=== PATIENT | male | born 1995 | race Caucasian/White ===

== ENCOUNTER 2022-12-22 13:47 | Observation (INO) | payer OTHER, SELFPAY ==
--- NOTE | ~2022-12-22 | CT_ITS ---
EXAMINATION: CT abdomen pelvis w con DATE: 12/22/2022 15:20 INDICATION: Abdominal pain TECHNIQUE: Computed tomography (CT) of the abdomen and pelvis was performed with 100 mL Omnipaque-350 intravenous contrast. Automated exposure control and iterative reconstruction technique were employe d. The dose-length product was 976.35 mGy-cm. COMPARISON: None FINDINGS: Lung bases are clear. Heart size is normal. No pericardial or pleural effusion. Liver, gallbladder, s pleen, pancreas, bilateral adrenal glands and kidneys are normal. The appendix is dilated to 1.6 cm w ith prominent surrounding inflammatory stranding consistent with acute appendicitis. Remainder of the bowels are unremarkable with no obstruction. Bladder is normal. Moderate-sized fat-containing left i nguinal hernia and tiny fat-containing umbilical hernia. Small amount of likely reactive free fluid i n the cul-de-sac. No abscess or free intraperitoneal gas. There are several mildly prominent but stil l normal-sized likely reactive lymph nodes along the ileocolic chain. No pathologically enlarged abdo marleni or pelvic lymphadenopathy. Schmorl's nodes along the superior endplates of T11 and T12. IMPRESSION: 1. Acute appendicitis. Dr. Melgar discussed these findings with Dr. Kulkarni at 3:32 PM. Reviewed, dictated and finalized at location A.
[2022-12-22 13:52] VITALS: BP 152/81; PULSE 66; RESP 16; TEMP 36.4; O2SAT 100
[2022-12-22 14:19] LABS: Basophils Percent Auto 0.6 % (0.2-1.2); Eosinophils Absolute Auto 0.2 K/mm3 (0-0.3); Eosinophils Percent Auto 2.6 % (0-4.4); Hemoglobin 14.9 g/dL (14.0-18.0); Immature Granulocyte Absolute 0.01 K/mm3 (0.00-0.031); Immature Granulocyte Percent A 0.1 % (0-0.5); Lymphocytes Absolute Auto 2.03 K/mm3 (0.9-3.2); Lymphocytes Percent Auto 29.1 % (18.3-44.2); Mean Corpuscular HGB Conc 32.4 g/dl (32-36); Mean Corpuscular Hemoglobin 29.6 pg (26-34); Mean Corpuscular Volume 91.5 fl (80-100); Mean Platelet Volume 9.3 fl (7.4-10.4); Monocytes Absolute Auto 0.6 K/mm3 (0.1-0.6); Monocytes Percent Auto 8.3 % (2.6-8.5); Neutrophils Absolute Auto 4.1 K/mm3 (1.3-6.7); Neutrophils Percent Auto 59.3 % (45.5-73.1); Platelet Count Result 233 k/mm3 (150-375); Red Blood Count 5.03 M/mm3 (4.6-6.20); Red Cell Distribution Width 12.9 % (11.5-14.5)
[2022-12-22 14:21] LABS: Appearance Urine Clear (Clear); Bilirubin Urine Negative (Negative); Blood Urine Negative (Negative); Color Urine Yellow (Yellow); Glucose Urine UA Negative (Negative); Ketones Urine Negative (Negative); Leukocyte Esterase Ur Negative LEU/UL (Negative); Nitrate Urine Negative (Negative); Protein Urine Negative (Negative); Specific Grav Ur 1.023 (1.001-1.035); Urobilinogen Urine 0.2 mg/dL (<2.0); pH Urine 6.5 (5.0-9.0)
[2022-12-22 14:22] LABS: Add Urine Microscopic? NO
[2022-12-22 14:30] LABS: Alanine Aminotransferase 19 U/L (6-50); Albumin Level 4.6 g/dL (3.5-5.1); Alkaline Phosphatase 61 U/L (38-126); Anion Gap 5 mmol/L (8-16); Aspartate Amino Transferase 25 U/L (17-59); Bilirubin,Total 0.7 mg/dL (0.2-1.3); Blood Urea Nitrogen 19 mg/dL (9-20); Calcium 8.8 mg/dL (8.4-10.2); Carbon Dioxide 31 mmol/L (22-30); Chloride 102 mmol/L (98-107); Estimated CRCL calculation 125 ml/min; Estimated Glomerular Filt Rate > 60; Glucose 95 mg/dL (65-110); Lipase 45 U/L (23-300); Potassium 4.1 mmol/L (3.4-5.0); Sodium 138 mmol/L (137-145)
--- NOTE | 2022-12-22 14:53 | ED.ABDPAIN ---
HPI - Abdominal Pain General Chief Complaint: Abdominal Pain Stated Complaint: RLQ pain Time Seen by Provider: 12/22/22 14:30 History of Present Illness HPI narrative: Patient is a 27-year-old male who presents to the emergency department this afternoon complaining of right lower quadrant abdominal pain that started on . Patient states that the pain has been persistent since then, has not increased or decreased in intensity, just persisted. He denies any radiation of the pain. Patient denies any additional symptoms including chest pain, shortness of breath, nausea, vomiting, dysuria, hematuria, constipation, diarrhea, melena, hematochezia, fevers or chills. He also denies any headaches, dizziness, lightheadedness, blurry visions, dizziness, focal weakness, numbness and or tingling. There are no other modifying, alleviating, or precipitating factors at this time. Related Data Allergies Allergy/AdvReac Type Severity Reaction Status Date / Time No Known Allergies Allergy Verified 12/22/22 15:04 Review of Systems Review of Systems: All systems are reviewed and are negative unless stated otherwise in the HPI. Exam Narrative: General: Alert, awake, afebrile, in no acute distress. HEENT: PERRL, no rhinorrhea, no post nasal drip, oropharynx clear. Neck: Trachea midline, no JVD, no lymphadenopathy. Cardiovascular: Regular rate and rhythm, no murmurs, rubs or gallops, no peripheral edema. Respiratory: Clear to auscultation bilaterally, no tachypnea, no wheezing, no rhonchi, no rubs, no respiratory distress. Abdomen: Soft, tenderness to palpation over the RLQ, nondistended, no rebound, no guarding, no peritoneal signs. Musculoskeletal: No joint swelling or deformity, normal muscle tone. Skin: No rashes or petechia, no signs of infection. Psychiatric: Alert and oriented, normal behavior and judgment for situation. Neurological: Alert and oriented to person, place, and time. Follows all commands. No focal deficits, speech is clear and fluent. Course Vital Signs Vital signs: Vital Signs Temperature 97.6 F 12/22/22 13:52 Pulse Rate 66 12/22/22 13:52 Respiratory Rate 16 12/22/22 13:52 Blood Pressure 152/81 H 12/22/22 13:52 Pulse Oximetry 100 12/22/22 13:52 Oxygen Delivery Room Air 12/22/22 13:52 Temperature 97.6 F 12/22/22 13:52 Pulse Rate 66 12/22/22 13:52 Respiratory Rate 16 12/22/22 13:52 Blood Pressure 152/81 H 12/22/22 13:52 Pulse Oximetry 100 12/22/22 13:52 Oxygen Delivery Room Air 12/22/22 13:52 MDM - Abdominal Pain MDM Narrative Medical decision making narrative: The patient was evaluated by myself in the emergency department. History is obtained from patient who is an independent historian and physical exam was performed. External medical records were reviewed at this time. IV was established and pertinent tests were ordered. Laboratory results obtained revealing no acute process. Imaging studies obtained included CT abdomen pelvis with contrast which was independently interpreted by me revealing an acute appendicitis. At this time, the stonemason general surgeon, Dr. Rodriguez was paged at [phone] and case was discussed with him over the phone at [phone]. Differential diagnosis considerations include acute appendicitis, diverticulitis, and constipation. I have evaluated and discussed social determinants of health with the patient that could potentially impact subsequent diagnosis and treatment plans. On repeat assessment of the patient, reevaluation revealed that the patient is doing well and is in no acute distress. Patient symptoms have remained stable since he arrived to our emergency department. Repeat vital signs were all reviewed and noted to be stable. Differential diagnosis and treatment plan were discussed with the patient at bedside. Patient agrees with discussion and after shared medical decision making agrees with admission. All questions were answered to the
[2022-12-22] MEDS: PIPERACILLIN/TAZ 4.5G/NS 100ML 4.5 GM/100 ML BAG IVPB (16:10)
[2022-12-22 16:41] VITALS: BP 126/75; PULSE 64; RESP 18; O2SAT 100
[2022-12-22 17:58] VITALS: BMI 30.5
--- NOTE | 2022-12-22 18:00 | ADMGEN ---
This patient, Dave Barboza, was admitted to 3 [facility] Surg Room 301-01. Patient/family oriented to hospital policies and general routines including ID bracelet, bed and alarms, visiting hours, pain management, procedures, bathroom and other care routines, personal items, smoking policy, room service/diet, and visiting hours. Information on how to activate the Rapid Response Team has been discussed. Patient/Family are encouraged to report perceived risks to care and to ask questions if they do not understand what they are told or what they should do.
[2022-12-22 22:00] VITALS: BP 144/78; PULSE 54; RESP 12; TEMP 35.7; O2SAT 98
[2022-12-23] VITALS (13 sets, daily range): BP systolic 116–153; BP diastolic 70–84; PULSE 51–91; RESP 12–16; TEMP 35.9–37.2; O2SAT 95–100
--- NOTE | 2022-12-23 01:08 | PC.NURSE ---
Daylight Savings Time For Daylight Savings Time Ending in the Fall - Clocks are moved back. For Daylight Savings Time Beginning in the Spring - Clocks are moved ahead. For [facility], the time of change occurs at 0200 hrs. Time is taken from the sports book server. This entry on the patient's chart recognizes the change in time reflected during documentation. Example: 2 entries for vital signs may be charted for 0200 hrs.
--- NOTE | 2022-12-23 07:21 | PM.IMHP ---
H&P: HPI History of Present Illness Date/Time: 12/23/22 07:21 Chief Complaint: acute appendicitis Narrative: Pt is a 27 y/o M presenting to ED c/o RLQ abd pain over last few days. Pt reports pain is localized to RLQ and is constant, sharp. Pt reports pain is worse c movt. Pt reports decreased appetite although no f/c, N/V. Pt denies previous episodes. Review of Systems Review of Systems: All systems reviewed & are unremarkable except as noted in HPI and below PMFSH Social History Social History Smoking status: Current some day smoker Alcohol intake: current Substance use: never Lack of Transportation: No Lack of Food: Never True Current Housing: I Have Housing Concerned About Future Housing: No Difficulty Paying Gas/Electric Bills: No Difficulty Paying for Meds: No Currently Unemployed: No Education: Decline to Answer Difficulty w/ Childcare or Family Care: No Spiritual care concerns: No Comments PMH - none SH - none FH - no CRC, IBD Meds Home Medications and Allergies Home Medications Medication Instructions Recorded Confirmed Type dextroamphetamine-amphetamine ER 25 mg PO DAILY 12/22/22 12/22/22 History 25 mg 24hr capsule,extend release Allergies Allergy/AdvReac Type Severity Reaction Status Date / Time No Known Allergies Allergy Verified 12/22/22 15:04 Vital Signs Vital Signs - 24 hr 12/22/22 13:52 12/22/22 16:41 12/22/22 18:20 Temperature 36.4 C Pulse Rate 66 64 Respiratory Rate 16 18 Blood Pressure 152/81 H 126/75 Pulse Oximetry 100 100 Oxygen Delivery Room Air Room Air 12/22/22 22:00 12/22/22 20:00 12/23/22 06:00 Temperature 35.7 C L 35.9 C L Pulse Rate 54 L 59 L Respiratory Rate 12 14 Blood Pressure 144/78 H 124/79 Pulse Oximetry 98 100 Oxygen Delivery Room Air Exam Const: General: cooperative, comfortable, no acute distress and obese HENMT: Head: normal to inspection, normocephalic and atraumatic Eyes: General: appearance normal, both eyes and all related structures Neck: Neck: normal visual inspection, full ROM and no lymphadenopathy Resp: Auscultation: clear to auscultation bilaterally Cardio: Rate: regular rate Rhythm: regular rhythm GI: Inspection: normal to inspection GI Palp: Yes abdominal tenderness, Yes Soft to palpation, Yes Tenderness to palpation present (GI), No Guarding due to palpation present (GI) and No Rigid due to palpation Skin: General skin exam: normal color and no rashes or lesions noted Neuro: General: patient oriented x3 and CN's II-XI intact bilaterally Extrem: General: normal to inspection and full ROM H&P: Results Labs Labs: Short CBC 12/22/22 Range/Units 14:12 WBC 7.0 (4.5-10.0) K/mm3 Hgb 14.9 (14.0-18.0) g/dL Hct 46.0 (42.0-52.0) % Plt Count 233 (150-375) k/mm3 BMP 12/22/22 14:12 Sodium 138 Potassium 4.1 Chloride 102 Carbon Dioxide 31 H BUN 19 Creatinine 1.10 Glucose 95 Calcium 8.8 Liver Function 12/22/22 Range/Units 14:12 Total Bilirubin 0.7 (0.2-1.3) mg/dL AST 25 (17-59) U/L ALT 19 (6-50) U/L Alkaline Phosphatase 61 (38-126) U/L Albumin 4.6 (3.5-5.1) g/dL Urine 12/22/22 Range/Units 14:12 Urine Color Yellow (Yellow) Urine Appearance Clear (Clear) Urine pH 6.5 (5.0-9.0) Ur Specific [place] 1.023 (1.001-1.035) Urine Protein Negative (Negative) mg/dL Urine Glucose (UA) Negative (Negative) mg/dL Imaging CT scan - abdomen: My impression: acute uncomplicated appendicitis Assessment and Plan Assessment and plan (1) Acute appendicitis: Code(s): K35.80 - Unspecified acute appendicitis Status: Acute Assessment and Plan: IV abx, NPO, OR for urgent appendectomy
--- NOTE | 2022-12-23 07:29 | WPDHPUPDATE1 ---
History and Physical Update Update Date/Time: 12/23/22 07:29 History and Physical has been reviewed, including an updated exam of the patient. There are NO changes in the patient's condition. Risks, benefits, and alternatives have been discussed and questions answered. Patient agrees to proceed with procedure.
--- NOTE | 2022-12-23 07:41 | WPDANESEPPF ---
Anes - Initial Pre Proc Eval Procedure: Operation Date: 12/23/22 07:30 Proposed Procedures p Laparoscopic Appendectomy - Zaina Rodriguez MD Date/Time: 12/23/22 07:41 Surgeon: Zaina Rodriguez MD Pre Op Diagnosis: Acute Appy Patient Data Age: 27 Gender: M Height: 1.96 m Weight: 116.8 kg Last Vital Signs Temp 35.9 C L 12/23/22 06:00 Pulse 59 L 12/23/22 06:00 Resp 14 12/23/22 06:00 BP 124/79 12/23/22 06:00 Pulse Ox 100 12/23/22 06:00 O2 Del Method Room Air 12/22/22 20:00 Allergies Allergy/AdvReac Type Severity Reaction Status Date / Time No Known Allergies Allergy Verified 12/22/22 15:04 Home Medications Medication Instructions Recorded Confirmed Type dextroamphetamine-amphetamine ER 25 mg PO DAILY 12/22/22 12/22/22 History 25 mg 24hr capsule,extend release Laboratory Tests 12/22/22 14:12 WBC 7.0 K/mm3 (4.5-10.0) RBC 5.03 M/mm3 (4.6-6.20) Hgb 14.9 g/dL (14.0-18.0) Hct 46.0 % (42.0-52.0) MCV 91.5 fl (80-100) MCH 29.6 pg (26-34) MCHC 32.4 g/dl (32-36) RDW 12.9 % (11.5-14.5) Plt Count 233 k/mm3 (150-375) MPV 9.3 fl (7.4-10.4) Immature Gran % (Auto) 0.1 % (0-0.5) Neut % (Auto) 59.3 % (45.5-73.1) Lymph % (Auto) 29.1 % (18.3-44.2) [place] % (Auto) 8.3 % (2.6-8.5) Eos % (Auto) 2.6 % (0-4.4) Baso % (Auto) 0.6 % (0.2-1.2) Lymph # (Auto) 2.03 K/mm3 (0.9-3.2) [place] # (Auto) 0.6 K/mm3 (0.1-0.6) Eos # (Auto) 0.2 K/mm3 (0-0.3) Baso # (Auto) 0.0 K/mm3 (0.0-0.1) Abs Immat Gran (auto) 0.01 K/mm3 (0.00-0.031) Absolute Neuts (auto) 4.1 K/mm3 (1.3-6.7) Absolute Nucleated RBC 0.0 K/mm3 (0.0-0.012) Nucleated RBC % 0.0 % (0.0-0.2) Sodium 138 mmol/L (137-145) Potassium 4.1 mmol/L (3.4-5.0) Chloride 102 mmol/L (98-107) Carbon Dioxide 31 H mmol/L (22-30) Anion Gap 5 L mmol/L (8-16) BUN 19 mg/dL (9-20) Creatinine 1.10 mg/dL (0.7-1.3) Estim Creat Clear Calc 125 ml/min Estimated GFR > 60 (59 - ) Glucose 95 mg/dL (65-110) Calcium 8.8 mg/dL (8.4-10.2) Total Bilirubin 0.7 mg/dL (0.2-1.3) AST 25 U/L (17-59) ALT 19 U/L (6-50) Alkaline Phosphatase 61 U/L (38-126) Total Protein 8.0 g/dL (6.3-8.2) Albumin 4.6 g/dL (3.5-5.1) Lipase 45 U/L (23-300) Urine Color Yellow (Yellow) Urine Appearance Clear (Clear) Urine pH 6.5 (5.0-9.0) Ur Specific [place] 1.023 (1.001-1.035) Urine Protein Negative mg/dL (Negative) Urine Glucose (UA) Negative mg/dL (Negative) Urine Ketones Negative mg/dL (Negative) Ur Blood (Man) Negative (Negative) Urine Nitrate Negative (Negative) Urine Bilirubin Negative (Negative) Urine Urobilinogen 0.2 mg/dL (<2.0) Leukocyte Esterase Rfl Negative KYLIE/UL (Negative) Patient hx anesthesia problems: none Family hx anesthesia problems: none Results Review: All pre-operative results and documents have been reviewed as part of the pre-operative evaluation. PMFSH Social History Social History Smoking status: Current some day smoker Alcohol intake: current Substance use: never Lack of Transportation: No Lack of Food: Never True Current Housing: I Have Housing Concerned About Future Housing: No Difficulty Paying Gas/Electric Bills: No Difficulty Paying for Meds: No Currently Unemployed: No Education: Decline to Answer Difficulty w/ Childcare or Family Care: No Spiritual care concerns: No Anes - Eval Final PreProcedure Day of Procedure 12/23/22 07:41 Patient weight: obese Heart: regular rate and rhythm Lungs: clear to auscultation Airway: Mallampati scale class II Neurological: alert and oriented Last oral intake: >/= 8 hours ASA classification: II Emergent: yes Anesth
[2022-12-23] MEDS: ceFAZolin 2 GM/D5W 50 ML 2 GM/50 ML BAG IVPB (07:47)
[2022-12-23] MEDS: BUPIVACAINE/EPINEPHRINE 0.5% 50 ML VIAL 30 ML INFILTRATE (08:15)
--- NOTE | 2022-12-23 08:32 | P.OP_ITS ---
Procedure Note - Detailed Date of Procedure 12/23/22 Pre-op Diagnosis Acute appendicitis Post-op Diagnosis Same Procedure Performed laparoscopic appendectomy Surgeon Zaina Rodriguez MD Anesthesia General Indications 27-year-old male presenting to the emergency department with severe right lower quadrant pain. Workup, including imaging, significant for acute appendicitis. Findings Acute uncomplicated appendicitis Description of Procedure The patient was taken to the operating room and placed in the supine position. After adequate induction of general anesthesia, the patient was prepped and draped in the normal sterile fashion. A time-out was then done to verify the patient's identity, as well as the procedure being performed. I began by making a 5 mm incision in the infraumbilical region, through this a Veress needle was placed in the peritoneal cavity. CO2 gas was then insufflated and after adequate pneumoperitoneum was achieved the Veress needle was removed. Then placed a 5 mm Optiview trocar under direct visualization into the peritoneal cavity. I then insufflated through this trocar site and the endoscope was placed into the trocar. Under direct visualization, placed 2 further 5 mm vang prapubic port as well as an additional 12 mm port in the left lower abdomen. At this point identified the cecum, I retracted the cecum both medially and superiorly allowing me to expose the appendix. The appendix was noted to be very dilated and inflamed especially towards the tip. The appendix was noted to be very adherent to the right lateral sidewall as well as the ileum. I was able to bluntly dissect the appendix from these adhesions. I then was able to locate the base of the appendix with the cecum. I created a window with the [place] dissector between the appendix itself and the mesoappendix. I then transected the mesoappendix with a white vascular staple load. The Endo-SHARRON was then reloaded with a blue staple load and I transected the base of the appendix. Once the specimen was completely detached, an endo-pouch was placed into the 12 mm port site and the specimen was removed through the endo-pouch. The appendiceal specimen will be sent to pathology for further review. I then copiously irrigated the right lower quadrant. Hemostasis was noted at both staple lines no other pathology was seen in this area. I then moved the camera to the suprapubic port to check our its port of entry. No iatrogenic injury or other pathology was noted in the upper abdomen. I then closed the 12 mm port site with a Fish code and 0 Vicryl suture under direct visualization. At this point, the abdomen was desufflated and all ports were removed. All port sites were closed with 4 Monocryl subcuticular suture. Dermabond was placed on all wounds. The patient tolerated the procedure well and was extubated in the operating room postop. He will be sent to the recovery room in stable condition. Estimated Blood Loss 10 Drains No Packing No Pathology Yes Complications No immediate complications Condition Stable Disposition PACU [facility] Billing Surgery - Charge Forward: Surgery Billing
[2022-12-23] MEDS: LACTATED RINGERS 1,000 ML 30 ML IV CONT (08:37)
[2022-12-23] MEDS: fentaNYL CITRATE INJ (*CRX) 100 MCG/2 ML VIAL 25 MCG IV PUSH ×5 (08:55→09:29)
[2022-12-23] MEDS: ONDANSETRON INJ 4 MG/2 ML VIAL IV PUSH (09:13)
[2022-12-23] MEDS: HYDROcodone/acetaminophen (*CRX) 5-325 MG TABLET 1 TAB PO ×2 (10:22→14:16)
[2022-12-23] MEDS: MORPHINE SULFATE (*CRX) 2 MG/ML INJ IV PUSH (13:37)
--- NOTE | 2022-12-25 14:08 | PM.DS ---
DS: Admitting Diagnosis Discharge Date 12/23/22 Admitting Diagnosis acute appendicitis DS: Discharge Diagnosis Discharge Diagnosis (1) Acute appendicitis: Code(s): K35.80 - Unspecified acute appendicitis Status: Acute Assessment and Plan: s/p lap appy, routine postop care, home c po analgesia, colace DS: Summary Hospital Course Reason for hospitalization: acute appendicitis Hospital Course: Pt is a 27 y/o presented to ED c acute appendicitis. He was admitted to the surgical service and started on IV abx. Upon evaluation, the pt was taken urgently to the OR and lap appy was performed, please see full op report for details. Pt did well postop and was transferred back to floor. Pt was up and ambulating s issue. He was able to grover diet. Pt will now be dc'd home c po analgesia, Colace. Status at Discharge Functional status at discharge: independent ambulation Overall status at discharge: patient is progressing back to baseline Time Spent with Patient Time attestation: Total time spent providing and/or coordinating discharge services: Time spent: Less than 30 minutes Exam Const: General: cooperative, comfortable and no acute distress Resp: Auscultation: clear to auscultation bilaterally Cardio: Rate: regular rate Rhythm: regular rhythm GI: Inspection: normal to inspection, distended and incision GI Palp: Yes abdominal tenderness, Yes Soft to palpation and Yes Tenderness to palpation present (GI) DS: Data Data Completed and Pending Completed studies during hospitalization: Pending at discharge 12/23/22 08:20 Surgical [PTH] Routine Discharge Plan Discharge Attending physician on discharge: Zaina Rodriguez Consulting providers: Ean Melgar; Noah Darling Discharging Clinician: Zaina Rodriguez Anticipated Discharge Date/Time: 12/23/22 13:00 Patient Disposition: Home, Self-Care Activity: may shower and other - see discharge instructions Diet: as tolerated Wound Care Instructions: incision open to air Discharge Instructions: DISCHARGE INSTRUCTION SHEET FOR HERNIA, GALLBLADDER AND APPENDIX SURGERIES DR. RODRIGUEZ PATIENT TO TAKE HOME 1. May shower in 24 hours, no soaking in bath x 2weeks. 2. Call office for: Wound increasingly painful or bleeding Vomiting Fever of greater than 101 degrees 3. If no bowel movement for three days, take 1 oz. (30 ml) Milk of Magnesia or MiraLax 17g 1 to 2 times daily. 4. No heavy lifting > 10-15 pounds x 6 weeks for hernia repairs and 2 weeks for laparoscopic cholecystectomy or appendectomy. 5. No driving for 3 days or while taking narcotic pain medications. 6. Ice to surgical site for 48 hours (30 min on, then 30 min off). 7. Up walking 10-30 minutes three times per day. 8. Resume previous home medications. 9. Follow-up 10-14 days in office for wound check or as previously scheduled. ([phone]) 10. Oral pain medications prescription to be sent to pharmacy. Take Tylenol 500mg every 6 hours and Ibuprofen 600mg every 6 hours for the first 2 days, then as needed. 11. NUTRITION: Start out by drinking fluids and increase your diet as tolerated. If you experience nausea, try dry toast, crackers, and 7-UP. If nausea or vomiting persists, contact your surgeon?s office. 12. Gallbladders-Low Fat Diet for 2 weeks (send care note of low fat diet) 13. Inguinal Hernias-wear scrotal support for 48 hours 14. Abdominal Hernias-if sent home with abdominal binder, wear for the first 2 weeks (may remove to shower or at night to sleep).
== END 2022-12-23 14:45 | disposition home or self-care (01) ==
LOC: ANHED 15:49 → ANH3MEDSUR 17:08
PROVIDERS: Emergency Medicine; Admitting Provider Surgery; Emergency Provider Emergency Medicine; Visit Provider Surgery
PROC: 0DTJ4ZZ Resection of Appendix, Percutaneous Endoscopic Approach (ICD-10-PCS; CPT 44970; principal; 2022-12-23 07:30)
DX: K35.30 Acute appendicitis with localized peritonitis, without perforation or gangrene (principal); E66.9 Obesity, unspecified; Z68.30 Body mass index [BMI] 30.0-30.9, adult; F17.200 Nicotine dependence, unspecified, uncomplicated; F10.90 Alcohol use, unspecified, uncomplicated
CPT/HCPCS: 44970; 36415; 74177; 80053; 81003; 83690; 85025; 88304; 96365; 99285; A9270; G0378; J0690; J2250; J2270; J2405; J2543; J2704; J3010; J7030; J7120; Q9967

== ENCOUNTER 2023-01-26 11:23 | Outpatient (CLI) | payer OTHER, SELFPAY | END 2023-01-26 11:24 | disposition home or self-care (01) | LOC: ANHLAB 11:24 | PROVIDERS: Visit Provider Surgery | DX: K40.90 Unilateral inguinal hernia, without obstruction or gangrene, not specified as recurrent (principal); Z01.818 Encounter for other preprocedural examination | CPT/HCPCS: 36415; 86850; 86900; 86901 ==

== ENCOUNTER 2023-01-28 03:01 | Day surgery (SDC) | payer OTHER, SELFPAY ==
[2023-01-24 15:04] VITALS: BMI 29.7
--- NOTE | 2023-01-24 15:11 | PC.NURSE ---
Report to the Outpatient Waiting Room, entrance under the green pavilion located off [facility], at time _0830_ on date _[id number]_. Planned Procedure Time: _1030_. Time changes happen often and if your time is changed the preop area will call you the afternoon before. - You and your visitor will be asked to self-screen and do not enter if you have any COVID symptoms. - A mask is optional within the hospital at this time. Patients may have clear liquids (water, carbonated beverages, clear teas, apple juice) until 3 hours prior to surgery with a maximum of 20 ounces. - No food from midnight until time of surgery Take the following medications with a SIP of water the morning of surgery: ___None DO NOT STOP ANY OF YOUR OTHER PRESCRIPTION MEDICATIONS PRIOR TO SURGERY ?EXCEPT THE FOLLOWING Medications to discontinue per physician ____None Date to take last dose Please no make-up, nail scottish, hairspray, perfume, deodorant, or body powder the day of surgery. No jewelry (including any body piercings) or valuables the day of surgery, leave them at home. Please take a shower or bath the night before, or the morning of, surgery with an antibacterial soap. Wear comfortable, loose fitting clothing. - Jewelry must be removed prior to entering the operating room. Rings and piercings that are not removed may be cut off. - The hospital will not accept responsibility for valuables. - Please leave all valuables, including medications, at home the day of surgery. If you are going home after surgery, a licensed buggy driver must drive you home. - NO public transportation without another adult if you receive anesthesia. - We recommend that an adult stay with you for 24 hours following discharge. - We also recommend that you do not drive, make important decision, drink alcoholic beverages, or take any drugs that were not prescribed by your health care provider for at least 24 hours after your discharge time. Follow any additional instructions given to you from your surgeon. If you or anyone in your household have experienced Covid symptoms in the past week, please notify your surgeon or the nurse liaison at the phone number below for possible testing. Telephone instructions given to _Nick__and asked if any additional questions and then verbalized understanding. Patient advised to call surgeon office or pre surgery nurse liaison [phone] if any additional questions.
[2023-01-28] VITALS (11 sets, daily range): BP systolic 112–146; BP diastolic 64–87; PULSE 54–90; RESP 12–18; TEMP 36.1–36.6; O2SAT 98–100
--- NOTE | 2023-01-28 07:27 | WPDHPUPDATE1 ---
History and Physical Update Update Date/Time: 01/28/23 07:27 History and Physical has been reviewed, including an updated exam of the patient. There are NO changes in the patient's condition. Risks, benefits, and alternatives have been discussed and questions answered. Patient agrees to proceed with procedure.
[2023-01-28] MEDS: LACTATED RINGERS 1,000 ML 30 ML IV CONT ×3 (09:00→13:00)
[2023-01-28] MEDS: ACETAMINOPHEN 500 MG TABLET 1000 MG PO (09:03)
[2023-01-28] MEDS: KETOROLAC 15 MG/ML VIAL (*BKC) IV PUSH (09:03)
--- NOTE | 2023-01-28 09:11 | WPDANESEPPF ---
Anes - Initial Pre Proc Eval Procedure: Operation Date: 01/28/23 10:30 Proposed Procedures p Robotic Assisted Left Inguinal Hernia Repair with Mesh - Zaina Rodriguez MD Date/Time: 01/28/23 09:11 Surgeon: Zaina Rodriguez MD Pre Op Diagnosis: Lt Ing Hernia Patient Data Age: 27 Gender: M Height: 1.96 m Weight: 118.3 kg Last Vital Signs Temp 96.9 F L 01/28/23 08:37 Pulse 73 01/28/23 08:37 Resp 18 01/28/23 08:37 BP 131/64 01/28/23 08:37 Pulse Ox 100 01/28/23 08:37 O2 Del Method Room Air 01/28/23 08:37 Allergies Allergy/AdvReac Type Severity Reaction Status Date / Time fentanyl AdvReac Mild Nausea Verified 01/24/23 15:04 Home Medications Medication Instructions Recorded Confirmed Type dextroamphetamine-amphetamine ER 25 mg PO DAILY 12/22/22 01/28/23 History 25 mg 24hr capsule,extend release Patient hx anesthesia problems: none Family hx anesthesia problems: none Results Review: All pre-operative results and documents have been reviewed as part of the pre-operative evaluation. [facility] History Surgical History Hx of hand surgery Family History Family History Father Hypertension Grandparent Cerebrovascular accident Social History Social History Smoking status: Current some day smoker Tobacco type: cigars Alcohol intake: current Drinks per week: 10 Substance use: never Lack of Transportation: No Lack of Food: Never True Current Housing: I Have Housing Concerned About Future Housing: No Difficulty Paying Gas/Electric Bills: No Difficulty Paying for Meds: No Currently Unemployed: No Education: Decline to Answer Difficulty w/ Childcare or Family Care: No Living arrangements: with family Spiritual care concerns: No Anes - Eval Final PreProcedure Day of Procedure 01/28/23 09:11 Patient weight: normal Heart: regular rate and rhythm Lungs: clear to auscultation Airway: Mallampati scale class II Neurological: alert and oriented Last oral intake: >/= 8 hours ASA classification: II Emergent: no Anesthetic plan: proceed Anesthesia type and monitoring: general ETT and standard monitoring Results Review: All pre-operative results and documents have been reviewed as part of the pre-operative evaluation. Informed Consent: The patient's anesthetic plan and its attendant risks and benefits were discussed with the patient/family/POA. Questions were solicited and answers provided to the satisfaction of the patient/family/POA.
[2023-01-28] MEDS: SCOPOLAMINE 1.5 MG PATCH TRANSDERM (09:45)
[2023-01-28] MEDS: ceFAZolin 2 GM/D5W 50 ML 2 GM/50 ML BAG IVPB (09:49)
[2023-01-28] MEDS: BUPIVACAINE/EPINEPHRINE 0.5% 50 ML VIAL 30 ML INFILTRATE (10:25)
--- NOTE | 2023-01-28 11:13 | W.PM.PROC2 ---
Procedure Note - Detailed Date of Procedure 01/28/23 Pre-op Diagnosis left inguinal hernia Post-op Diagnosis Same Procedure Performed robotic assisted left inguinal hernia repair with mesh Surgeon Zaina Rodriguez MD Anesthesia General Indications 89 y/o M c LIH and worsening groin pain over last few weeks Findings indirect left inguinal hernia Description of Procedure Patient was brought into the operating room and placed in the supine position. After adequate induction of general anesthesia, the patient was prepped and draped in normal sterile fashion. A time-out was then done to verify the patient's identity, as well as the procedure being performed. I began by making a 8 mm incision in the supraumbilical region, a Veress needle was then placed into the peritoneal cavity. CO2 gas was then insufflated and after adequate pneumoperitoneum was achieved, the Veress needle was removed. I then placed an 8 mm trocar through this incision. I then placed the endoscope through this trocar site and under direct visualization placed 2 further 8 mm ports in the right and left mid abdomen. The [employer] robot was then docked to the 3 trocar sites. I then scrubbed out and went to the robotic console. Upon examining the pelvis, it was noted that the patient had a moderate sized left inguinal hernia. The right side was examined and no hernia defect was noted. I began by making a preperitoneal flap approximately 6 cm superior to the defect. This flap was carried medially past the umbilical ligaments and laterally to the transversalis. It then began dissection of my medial compartment taking this down to the pubic tubercle. I then began the lateral dissection taking this down to the transversalis fascia. Once these compartments were achieved, I began dissection around the cord structures. A moderate sized indirect hernia was noted at this point. Using careful dissection, was able to reduce indirect hernia sac off the cord structures. Once this was adequately done, I went ahead and placed a large piece of 3D Max mesh into the abdominal cavity. The mesh was carefully positioned, centering the center of the mesh over the indirect defect. Once this was done, was very satisfied with our repair. Using 3-0 Vicryl sutures, I tacked the mesh medially to Sky's ligament. Two lateral sutures were placed from the mesh to the transversalis fascia. I then closed the peritoneal flap with a running 2.0 V Lock suture. The abdomen was then desufflated, and all ports were removed. All incisions were then closed with the 4.0 monocryl suture. Dermabond was placed on each wound. The patient tolerated the procedure well, was extubated in the operating room postoperatively, and will now be transferred to the recovery room in stable condition. Implants large 3DMax mesh Estimated Blood Loss 10 Drains No Packing No Pathology None sent Complications No immediate complications Condition Stable Disposition PACU [facility] Billing Surgery - Charge Forward: Surgery Billing
[2023-01-28] MEDS: fentaNYL CITRATE INJ (*CRX) 100 MCG/2 ML VIAL 25 MCG IV PUSH ×2 (11:40→11:54)
[2023-01-28] MEDS: oxyCODONE HCL (*CRX) 5 MG TAB IR PO (12:24)
== END 2023-01-28 13:47 | disposition home or self-care (01) ==
PROVIDERS: Visit Provider Surgery
PROC: 8E0Y4CZ Robotic Assisted Procedure of Lower Extremity, Percutaneous Endoscopic Approach (ICD-10-PCS; CPT 49650; principal; 2023-01-28 10:30)
DX: K40.90 Unilateral inguinal hernia, without obstruction or gangrene, not specified as recurrent (principal); F17.290 Nicotine dependence, other tobacco product, uncomplicated
CPT/HCPCS: 49650; S2900; 36415; 86850; 86900; 86901; A9270; C1781; J0690; J1100; J1170; J1200; J1885; J2250; J2405; J3010; J7120

== ENCOUNTER 2025-02-13 11:50 | Emergency (ER) | payer OTHER, SELFPAY ==
--- NOTE | ~2025-02-13 | XR_ITS ---
Examination: XR ankle LT min 3V Clinical History: injury Comparison: None Technique: 3 views left ankle Findings/impression: 1. No fracture or dislocation left ankle. Reviewed, dictated and finalized at location R. 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
[2025-02-13 11:53] VITALS: BP 136/78; PULSE 102; RESP 16; TEMP 36.5; O2SAT 99
[2025-02-13 11:59] VITALS: BP 151/78; PULSE 100; RESP 16; TEMP 36.4; O2SAT 98
--- NOTE | 2025-02-13 12:12 | ED.GENADULT ---
HPI - General Adult General Chief complaint: Extremity Injury, Lower Stated complaint: ankle injury Time Seen by Provider: 02/13/25 12:11 History of Present Illness HPI narrative: 29-year-old male presents emergency department with left ankle pain. Patient states yesterday he was playing with his 3-year-old and tried to impress her by doing a 4 ft jump on the slide and subsequently rolled his left ankle. He has been ambulating with pain and swelling. No previous trauma. No other areas of trauma or pain. Related Data Home Medications ?Medication ?Instructions ?Recorded ?Confirmed ?Last Taken ?Type dextroamphetamine-amphetamine ER 25 mg PO DAILY 12/22/22 02/12/23 12/18/22 History 25 mg 24hr capsule,extend release Allergies Allergy/AdvReac Type Severity Reaction Status Date / Time fentanyl AdvReac Mild Nausea Verified 02/13/25 11:55 Review of Systems Review of Systems: All systems reviewed & are unremarkable except as noted in HPI and below PMFSH Surgical History Surgical History (Updated 02/12/23 @ 14:46 by Dora Peguero CMA) History of hernia repair Hx of hand surgery Family History Family History Father Hypertension Grandparent Cerebrovascular accident Social History Social History Smoking status: Current some day smoker Tobacco type: cigars Alcohol intake: current Drinks per week: 10 Substance use: never Lack of Transportation: No Lack of Food: Never True Current Housing: I Have Housing Concerned About Future Housing: No Difficulty Paying Gas/Electric Bills: No Difficulty Paying for Meds: No Currently Unemployed: No Education: Decline to Answer Difficulty w/ Childcare or Family Care: No Living arrangements: with family Spiritual care concerns: No Exam Narrative: EXAMINATION OF ORGAN SYSTEMS/BODY AREAS: Constitutional: Vital signs per nursing GENERAL:[No acute distress, non-toxic appearing.] HEAD: Normal with no signs of head trauma. EYES: EOMI, conjunctiva normal ENT: Hearing grossly intact LUNGS: Nonlabored breathing. EXT: Normal range of motion , there is some swelling in the lateral malleolus on the left he has full passive and active range of motion his compartments are soft 2+ distal pulses. The foot is nontender there is no overlying skin changes. SKIN: [No rashes or lesions.] NEURO: [Alert. No gross focal sensory or strength deficits.] PSYCH: Normal affect Course Vital Signs Vital signs: Vital Signs Temperature 36.5 C 02/13/25 11:53 Pulse Rate 102 H 02/13/25 11:53 Respiratory Rate 16 02/13/25 11:53 Blood Pressure 136/78 02/13/25 11:53 Pulse Oximetry 99 02/13/25 11:53 Oxygen Delivery Room Air 02/13/25 11:53 Temperature 36.4 C 02/13/25 11:59 Pulse Rate 100 02/13/25 11:59 Respiratory Rate 16 02/13/25 11:59 Blood Pressure 151/78 H 02/13/25 11:59 Pulse Oximetry 98 02/13/25 11:59 Oxygen Delivery Room Air 02/13/25 11:53 MDM Differential Diagnosis Differential Diagnosis: 29-year-old male presents with some acute posttraumatic left ankle pain. Differentials sprain versus less likely fracture less likely dislocation. Did obtain a plain film of the affected joint there is no evidence of osseous injuries muscle compartments are soft. Urine has an established orthopedic physician he like to follow up with his already on NSAIDs for a different ankle injury in the right ankle. Otherwise all questions answered discharge with appropriate follow-up Imaging Data Attestation: I personally reviewed and interpreted this imaging study as follows: My impression: left ankle x-ray shows no evidence of osseous injury per my interpretation Discharge Plan Discharge Clinical Impression: Ankle sprain Patient Disposition: Home Condition: Stable Instructions: Ankle Sprain (DC) Patient Language: Chinese Prescriptions: No Action dextroamphetamine-amphetamine 25 mg capsule,extended release 24hr 25 mg PO DAILY Follow-up/Referrals: Javier Obrien MD [Physician, Orthopedics] - 1 Week UNKNOWN,DOCTOR [Non-Staff] Time of Disposition: 13:05
--- OUTSIDE RECORDS SUMMARY | 2025-02-13 12:28 | XMS_ITS | Clinical Summary ---
Author Organization [facility] Medical Office Building B Address [address] [place] [address] Care Team Providers Care Network Mgr Name Role Phone Milly Lawton MD Primary Care Provid er Allergies No known active allergies Medications dextroamphetami ne-amphetamine XR (ADDERALL XR) 30 mg 24 hr capsule Take 1 capsule (30 mg total) by mouth every morning Active erythromycin (ILOTYCIN) ophthalmic ointment Thin ribbon in left eye TID as needed for pain 3.5 g 11 10/24/2022 Active Active Problems Problem Noted Date Diagnosed Date Irregular astigmatism of left eye 12/21/2022 Assessment & Plan (12/24/2022 1:54 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 Corneal scar will still be there. Reviewed chart with Dr. Vera. Patient would like to try scleral lens with Dr. Jesus before having PRK surgery Refer to Dr. Eddie Jesus for scleral lens fit. Patient will need to have dilation and wet refraction before having surgery Closed displaced fracture of neck of right fifth metacarpal bone 10/17/2020 Overview (10/17/2020): Added automatically from request for surgery [id number] Surgical History Surgery Date Site/Laterality Comments ARM SURGERY Left closed reduction WISDOM TOOTH EXTRACTION Medical History Medical History Date Comments ADHD (attention deficit hyperactivity disorder) adhd Social History Tobacco Use Types Packs/Day Years Used Date Smoking Tobacco: Some Days Cigars AUDIT-C Answer Date Recorded Q1: How often do you have a drink containing alc ohol? Monthly or less 11/02/2022 Q2: How many drinks containi ng alcohol do you have on a typical day when you are drinking? 1 or 2 11/02/2022 Q3: How often do you have si x or more drinks on one occasion? 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 Gender Identity Not on file Sexual Orientation Not on file Plan of Treatment Health Maintenance Due Date Last Done Comments Depression Screening 1993 Hepatitis C Screening 1993 DTaP/Tdap/Td Vaccine (1 - Tdap) 02/22/2004 Varicella Vaccines (1 of 2 - 13+ 2-dose series) 2006 Hepatitis B Screening 2011 Regular Well Visit/Exam 18-64 2011 Pneumococcal vaccine <65 (1 of 2 - PCV) 02/22/2012 HPV Vaccines (1 - 3-dose SCDM series) 02/22/2020 Covid-19 Vaccine (4 - 2024- season) 2024 05/25/2021, 06/15/2020, 05/13/2020 Influenza Vaccine (#1) 2024 03/02/2022, 2002 Insurance [facility] PLUS [facility] PLUS [facility] CHOICE PLUS Care Teams Network Mgr Relationship Specialty Start Date End Date Milly Lawton MD [address] [address] PCP - General Internal Medicine 09/11/22
--- OUTSIDE RECORDS SUMMARY | 2025-02-13 12:28 | XMS_ITS | Clinical Summary ---
Author Organization [facility] Address [address] [place] [address] Care Team Providers Care Overhead Distribution Engineer Name Role Phone Doron Anthony MD Primary Care Provider [phone] Allergies No known active allergies Medications clomiPHENE Citrate (CLOMID) 50 MG Tab Take 25 tablets by mouth daily. Active ondansetron (ZOFRAN-ODT) 8 MG disintegrating tabletIndications:N ausea Take 1 tablet (8 mg total) by mouth every 8 (eight) hours as needed for Nausea. 30 tablet 5 Active semaglutide-weight management (WEGOVY) 1.7 mg/dose injection (PEN)Indications:We ight Loss Inject 1.7 mg into the skin once a week. Indications: Weight Loss 3 mL 4 5 Active amphetamine-dextroa mphetamine XR (ADDERALL XR) 25 mg 24 hr capsuleIndications: Attention or concentration deficit Take 1 capsule (25 mg total) by mouth every morning. 30 capsule 5 Active Active Problems Problem Noted Date Diagnosed Date Attention or concentration deficit 10/30/2023 Class 1 obesity due to exces s calories with serious comorbidity and body mass index (BMI) of 31.0 to 31.9 in adult 10/30/2023 Encounters Date Type Department Care Team Description 02/08/2025 Tawana Message Enc [facility] Multispecialty Care - [place] [address] [place] [address] Tawana, [facility] Provider Upcoming Appointment 01/28/2025 Scan [facility] HE[facility] INFO SRVCS Scanned, Doc Med Group 12/22/2024 MyChart Message Enc [facility] Multispecialty Care - [address] [place] [address] Doron Anthony MD Noticing hair thinning from Last 3 Months Immunizations Immunization Administration Dates Next Due Hepatitis A (Havrix 1440 [address].U) 06/20/2020 Influenza Adult (Generic) 03/02/2022 Pneumococcal (Prevnar 20) 03/06/2024 Tdap (Generic) 04/02/2018 Social History Tobacco Use Types Packs/Day Years Used Date Smoking Tobacco: Some Days Cigarettes Cigars Started: 2019 Smokeless Tobacco: Never Tobacco Cessation:Ready to Q uit: No; Counseling Given: Yes Comments:Counseled by Dr Anthony Alcohol Use Standard Drinks/Week Comments Yes 0 (1 standard drink = 0.6 oz pur e alcohol) 6 per week AUDIT-C Answer Date Recorded Q1: How often do you have a drink containing alc ohol? 2-3 times a week 10/30/2023 Q2: How many drinks containi ng alcohol do you have on a typical day when you are drinking? 3 or 4 10/30/2023 Q3: How often do you have si x or more drinks on one occasion? Never 10/30/2023 PHQ-2 Answer Date Recorded Patient Health Questionnaire-2 Score 0 03/06/2024 Sex and Gender Information Value Date Recorded Sex Assigned at Not on file Legal Sex Male 11:25 AM CDT Gender Identity Not on file Sexual Orientation Not on file Last Filed Vital Signs Vital Sign Reading Time Taken Comments Blood Pressure 120/75 08/31/2024 1:23 PM CDT Pulse 62 08/31/2024 1:23 PM CDT Temperature 36.6 C (97.8 F) 08/31/2024 1:23 PM CDT Respiratory Rate 18 08/31/2024 1:23 PM CDT Oxygen Saturation 100% 08/31/2024 1:23 PM CDT Inhaled Oxygen Concentration - - Weight 116 kg (255 lb 12.8 oz) 08/31/2024 1:23 P M CDT Height 195.6 cm (6' 5) 08/31/2024 1:23 PM CDT Body Mass Index 30.33 08/31/2024 1:23 PM CDT Plan of Treatment Health Maintenance Due Date Last Done Comments Hepatitis B Vaccines (1 of 3 - 19+ 3-dose series) 02/22/2012 HPV Vaccines (1 - 3-dose SCD M series) 02/22/2020 COVID-19 Vaccine (4 - 2024-2 6 season) 2024 05/25/2021, 06/15/2020, 05/13/2020 Annual Physical 10/29/2024 10/30/2023 Influenza Adult (#1) 2024 03/02/2022 DTaP, Tdap and Td Vaccines ( 2 - Td or Tdap) 04/02/2028 04/02/2018 Hepatitis A Vaccines Aged Out 06/20/2020 No long er eligible based on patient's age to complete this topic Hepatitis C Completed 11/01/2023 PHQ-2 (Physician [place]) Completed 03/06/2024 Pneumococcal Vaccine: Pediatrics (0 to 5 Years) and At-Risk Patients (6 to 49 Years) Completed 03/06/2024 Meningococcal B Vaccine Aged Out No l onger eligible based on patient's age to complete this topic Meningococcal Vaccine Aged Out No connie jann eligible based on patient's age to complete this topic RSV Immunizations Under 20 Months Aged Out No longer eligible b ased on patient's age to complete this topic Procedures Procedure Name Priority Date/Time Associated Diagnosis Comments HEPATITIS C ANTIBODY Routine 11/01/2023 7:39 AM CDT Annual physical exam Establishing care with new doctor, encounter for General medical exam Encounter for hepatitis C screening test for low risk patient from Last 3 Months or Most Recently Relevant to Health Maintenance Results * HEPATITIS C ANTIBODY (11/01/2023 7:39 AM CDT) HEPATITIS C AB NON-REACTI VE NON-REACT DEONTE 11/01/2023 7:49 PM CDT [facility] Comment: ANTIBODIES TO HCV NOT DETECTED. DOES NOT EXCLUDE THE POSSIBILITY OF EXPOSURE TO HCV. 11/01/2023 7:39 AM CDT Doron Anthony MD LABORATORY Final Result [facility] [address] [place] [address], [id number] from Last 3 Months or Most Recently Relevant to Health Maintenance Insurance [facility] Care Teams Overhead Distribution Engineer Relationship Specialty Start Date End Date Doron Anthony MD [address] [address] PCP - General INTERNAL MEDICINE 10/30/23
--- OUTSIDE RECORDS SUMMARY | 2025-02-13 12:28 | XMS_ITS | Encounter Summary ---
Author Organization [facility] Address [facility] [place] [address] Care Team Providers Care Infusion Rn Name Role Phone Doron Anthony MD Primary Care Provider [phone] Encounter Details Date Type Department Care Team (Latest Contact Info) Description 09/02/2024 Towit Message Enc [facility] Medical [facility] Multispecialty Care - [place] [address] [address] [place] [address] Doron Anthony MD [address] [place] [address] [phone] Nausea from Wegovy Social History Tobacco Use Types Packs/Day Years Used Date Smoking Tobacco: Some Days Cigarettes Cigars Started: 2019 Smokeless Tobacco: Never Comments:Counseled by Dr Lila saha Alcohol Use Standard Drinks/Week Comments Yes 0 [...] on file Sexual Orientation Not on file documented as of this encounter Plan of Treatment Not on file documented as of this encounter Visit Diagnoses Not on filedocumented in this encounter Additional Health Concerns Assessment Noted Time PHQ-9 Depression Total Score: 3 10/30/19 24 4:22 PM CDT documented as of this encounter Care Teams Infusion Rn Relationship Specialty Start Date End Date Doron Anthony MD [address] [address] PCP - General INTERNAL MEDICINE 10/30/23 documented as of this encounter
--- OUTSIDE RECORDS SUMMARY | 2025-02-13 12:28 | XMS_ITS | Encounter Summary ---
Author Organization [facility] Address [facility] [place] [address] Care Team Providers Care Care Provider Name Role Phone Doron Anthony MD Primary Care Provider [phone] Encounter Details Date Type Department Care Team (Latest Contact Info) Description 11/30/2023 Polyheal Message Enc [facility] Medical [facility] Multispecialty Care - [place] [address] [address] [place] [address] Doron Anthony MD [address] [place] [address] [phone] ADD medication follow up appointment Social History Tobacco Use Types Packs/Day Years Used Date Smoking Tobacco: Some Days Cigarettes Cigars Started: 2019 Smokeless Tobacco: Never Comments:Counseled by Dr Lila saha AUDIT-C Answer Date Recorded Q1: How often [...] Answer Date Recorded Patient Health Questionnaire-2 Score 1 10/30/2023 Sex and Gender Information Value Date Recorded [...] Time PHQ-9 Depression Total Score: 3 10/30/19 4:22 PM CDT documented as of this encounter Care Teams Care Provider Relationship Specialty Start Date End Date Doron Anthony MD [facility] [address] PCP - General INTERNAL MEDICINE 10/30/23 documented as of this encounter
== END 2025-02-13 13:50 | disposition home or self-care (01) ==
PROVIDERS: Emergency Provider Emergency Medicine; PCP Internal Medicine
DX: S93.402A Sprain of unspecified ligament of left ankle, initial encounter (principal); F17.290 Nicotine dependence, other tobacco product, uncomplicated; X50.9XXA Other and unspecified overexertion or strenuous movements or postures, initial encounter
CPT/HCPCS: 73610; 99283